=== PATIENT | female | born 1945 | race Caucasian/White ===

== ENCOUNTER → 2021-08-12 | Emergency (ER) | payer OTHER, MEDICARE ==
[~2021-08-12] MED LIST: CASIRIVIMAB/IMDEVIMAB 10 ML in SODIUM CHLORIDE 100 ML IVPB ONE
[2021-08-12 14:29] VITALS: BP 125/63; PULSE 91; TEMP 99
== END | disposition home or self-care (01) ==
LOC: JER 14:16 → JCOVINFU 14:16
DX: U07.1 COVID-19 (principal); J06.9 Acute upper respiratory infection, unspecified; R05.9 Cough, unspecified; R09.81 Nasal congestion
CPT/HCPCS: 96365; 99284-25